=== PATIENT | male | born 1955 | race African-American/Black ===

== ENCOUNTER 2019-05-05 10:56 | Emergency (ER) | payer OTHER ==
[~2019-05-05] VITALS: Ht 170.2 cm; Wt 73.0 kg
[2019-05-05 11:03] VITALS: BP 158/91
--- NOTE | 2019-05-05 11:04 | NUR ---
ED Nurse Note: PT AMBULATED TO ED C/O LEFT THUMB LACERATION WHILE WORKING ON HIS HOUSE WHILE USING SAW. NO BONE VISIBLE. NOT ACTIVELY BLEEDING.
--- NOTE | 2019-05-05 11:14 | NUR ---
ED Nurse Note: DR. KELLY AT THE BEDSIDE DOING SUTURES
[2019-05-05] MEDS ORDERED: Lidocaine 1% 10mg/ml/Epi 0.005mg/ml 30ml vial INJ ONE (11:15)
[2019-05-05] MEDS ORDERED: Tetanus/Diptheria/Pertussis IM ONE (11:30)
[2019-05-05] MEDS ORDERED: CEPHALEXIN500 M1 ORAL (11:32)
--- NOTE | 2019-05-05 11:32 | Emergency Room Report ---
History of Present Illness General Chief Complaint: Laceration Source: Patient Present Illness HPI 63-year-old male presents with laceration to the left thumb base, while using a back grinder to repair the roof, he endorses sharp pain aggravated with movement alleviated throughout severity is mild, intermittent, patient denies any numbness or tingling patient presents for evaluation Allergies: Coded Allergies: No Known Allergies (Unverified , 05/05/19) Patient History Past Medical History: see triage record Social History: Reports: smoking Reviewed Nursing Documentation: PMH: Agreed; PSxH: Agreed Nursing Documentation-PMH Past Medical History: No Stated History Review of Systems All Other Systems: negative except mentioned in HPI Physical Exam Vital Signs Date Time Temp Pulse Resp B/P (MAP) Pulse Ox O2 Delivery O2 Flow Rate FiO2 05/05/19 10:59 97.9 63 15 158/91 (113) 98 Room Air General Appearance: well appearing, no apparent distress Head: normocephalic, atraumatic ENT: hearing grossly normal, normal voice Neck: full range of motion, supple Respiratory: no respiratory distress, speaking full sentences Musculoskeletal: other - Left upper extremity: 2+ radial pulses, radial median ulnar nerve intact, 2.5 cm laceration near the lateral aspect of the thumb towards the radial side Neurologic: alert, normal gait Psychiatric: mood/affect normal Skin: no rash Procedures Laceration/Wound Repair Laceration/Wound Repair : Consent: Verbal Wound Location: upper extremity Wound's Depth, Shape: superficial Wound Length (cm): 2 Wound Explored: clean Irrigated w/ Saline (ccs): 1000 Betadine Prep?: Yes Anesthesia: 1% Lidocaine, Lidocaine w/ Epi Volume Anesthetic (ccs): 5 Wound Repaired With: sutures Suture Size/Type: 5:0 Number of Sutures: 6 Sterile Dressing Applied?: Yes Patient Tolerated: Well Complications: None Medical Decision Making Diagnostic Impression: Primary Impression: Laceration ER Course 63-year-old male presents with laceration to the lateral aspect of the thumb neurovascular exam intact, no evidence of foreign body, We will provide patient with antibiotics, area was sutured cleaned Disposition home with return precautions follow-up with PCP Last Vital Signs Date Time Temp Pulse Resp B/P (MAP) Pulse Ox O2 Delivery O2 Flow Rate FiO2 05/05/19 11:03 97.9 63 15 158/91 98 Room Air Disposition: HOME, SELF-CARE Condition: Stable Scripts Cephalexin* (KEFLEX*) 500 Mg Tablet 500 MG ORAL EVERY 6 HOURS, #28 CAP Prov: Addison Monge MD 05/05/19 Referrals: [facility] Patient Instructions: Laceration Care, Adult Additional Instructions: The patient was provided with discharge instructions, notified to follow-up with a primary care doctor and or specialist in the next 24-48 hours, and to return to the ED if they have worsening of their symptoms. Please note that this report is being documented using [employer] technology. This can lead to erroneous entry secondary to incorrect interpretation by the dictating instrument. PLEASE HAVE SUTURES REMOVED 05/15/2019 Addison Monge MD May 05, 2019 11:32
[2019-05-05 11:37] VITALS: BP 142/58
--- NOTE | 2019-05-05 11:37 | NUR ---
ER DISCHARGE NOTE: Patient is cleared to be discharged per ERMD, pt is aox4, on room air, with stable vital signs. pt was given dc and prescription instructions, pt was able to verbalize understanding, pt id band removed. pt is able to ambulate with steady gait. pt took all belongings.
== END 2019-05-05 11:37 | disposition home or self-care (01) ==
LOC: EMR 10:59
DX: S61.012A Laceration without foreign body of left thumb without damage to nail, initial encounter (principal); Z23 Encounter for immunization; F17.200 Nicotine dependence, unspecified, uncomplicated; X58.XXXA Exposure to other specified factors, initial encounter; Y92.9 Unspecified place or not applicable
CPT/HCPCS: 90471; 90715; 99283